=== PATIENT | male | born 1995 | race Caucasian/White ===

== ENCOUNTER 2020-10-07 18:35 | Emergency (ER) | payer MEDICAID ==
[~2020-10-07] VITALS: Ht 182.9 cm; Wt 83.9 kg
[2020-10-07 19:09] VITALS: BP 138/78
--- NOTE | 2020-10-07 20:00 | NUR ---
PATIENT PRESENTS TO ED WITH THROAT/NECK PAIN AND SOB. PT STATES "I AM HAVING HARD DEEP BREATHS AND I HAVE THROAT PAIN" . DENIES N/V/D; SKIN IS PINK/WARM/DRY; AAOX4 WITH EVEN AND STEADY GAIT; HR EVEN AND REGULAR; PT DENIES ANY FEVER, CP, SOB, OR COUGH AT THIS TIME; PATIENT STATES PAIN OF 8/10 AT THIS TIME; VSS; PATIENT POSITIONED FOR COMFORT; HOB ELEVATED; BEDRAILS UP X2; BED DOWN. ER MD MADE AWARE OF PT STATUS. ALLERGIES: SULFA, AMOXICILLIN PMH: STOMACH PROBLEMS
[2020-10-07] MEDS ORDERED: LORazepam 1 MG TAB PO ONE (20:35)
[2020-10-07] MEDS ORDERED: ATI.5 PO (22:08)
[2020-10-07 22:36] VITALS: BP 138/78
== END 2020-10-07 22:35 | disposition home or self-care (01) ==
LOC: MED 18:35
DX: R06.00 Dyspnea, unspecified (principal); R07.89 Other chest pain; J02.9 Acute pharyngitis, unspecified; K21.9 Gastro-esophageal reflux disease without esophagitis; F12.90 Cannabis use, unspecified, uncomplicated; Z88.1 Allergy status to other antibiotic agents; Z79.899 Other long term (current) drug therapy
CPT/HCPCS: 71045; 81025; 93005; 99284